=== PATIENT | male | born 1975 | race Caucasian/White ===

== ENCOUNTER 2018-11-18 15:28 | Emergency (ER) | payer MEDICARE, MEDICAID ==
--- NOTE | 2018-11-18 16:44 | EKG REPORT ---
SEVERITY:- ABNORMAL ECG - SINUS TACHYCARDIA RIGHT ATRIAL ABNORMALITY : Confirmed by: Faisal Brannon MD 18-Nov-2018 16:43:42
[2018-11-18 16:47] LABS: ABSOLUTE BASOPHILS # (AUTO) 0.1 10^3/uL (0.0-0.2); ABSOLUTE EOSINOPHILS # (AUTO) 0.2 10^3/uL (0.0-0.6); ABSOLUTE LYMPHOCYTES (AUTO) 1.4 10^3/uL (0.5-4.7); ABSOLUTE MONOCYTES (AUTO) 0.7 10^3/uL (0.1-1.4); ABSOLUTE NEUT (AUTO) 7.3 10^3/uL (1.7-8.2); BASOPHILS % (AUTO) 0.8 % (0-2); EOSINOPHILS % (AUTO) 1.6 % (0-6); HEMOGLOBIN 14.6 g/dL (13.5-17.0); LYMPHOCYTES % (AUTO) 14.7 % (13-45); MEAN CORPUSCULAR HEMOGLOBIN 29.2 pg (27.0-33.4); MEAN CORPUSCULAR HGB CONC 33.9 g/dL (32.0-36.0); MEAN CORPUSCULAR VOLUME 86 fl (80-97); MONOCYTES % (AUTO) 7.2 % (3-13); PLATELET COUNT 210 10^3/uL (150-450); RED BLOOD COUNT 4.99 10^6/uL (4.35-5.55); RED CELL DISTRIBUTION WIDTH 13.6 % (11.5-14.0); SEGMENTED NEUTROPHILS % (AUTO) 75.7 % (42-78); TOTAL CELLS COUNTED % (AUTO) 100 %; WHITE BLOOD COUNT 9.6 10^3/uL (4.0-10.5)
--- NOTE | 2018-11-18 16:48 | ER Document Report ---
Addendum entered and electronically signed by KEE GARCIA LCSWA 11/20/18 15:27: Discharge - Discharge Clinical Impression: Violent behavior, Schizoaffective disorder, bipolar type, Autism Condition: Good Disposition: HOME, SELF-CARE Additional Instructions: You have been evaluated both medical and behavioral health teams and deemed appropriate for discharge as you are clearly able to demonstrate you are in full control of your behaviors, deny thoughts of wanting to harm herself or others, and have no behaviors indicating psychosis. You are encouraged to take your medications as prescribed; follow-up with your outpatient mental health provider. AT ANY TIME, IF YOUR SYMPTOMS CHANGE SIGNIFICANTLY OR WORSEN OR YOU DEVELOP NEW SYMPTOMS, RETURN TO THE EMERGENCY DEPARTMENT IMMEDIATELY FOR RE-EVALUATION. Referrals: KAYLENE FOFANA FNP [Primary Care Provider] - Follow up as needed [facility] [Outside] - Follow up as needed Original Note: ED General - General Stated Complaint: PSYCH EVAL Time Seen by Provider: 11/18/18 16:32 Mode of Arrival: Ambulatory Information source: Law Enforcement, Outside Facility Records Cannot obtain history due to: Uncooperative Notes: 43-year-old male with unknown medical history [facility] with increasingly violent behavior, threatening staff and other patients. Patient repeatedly states that he is God and he will make everyone suffer once he becomes God. He is uncooperative with exam. Pacing around the room. Patient presented in police custody with IVC paperwork already in place. They d eem him mentally ill and danger to himself and others. Nursing Note: This expert medical writer received a call from Isabel at [facility] ([phone]), who reports the patient has been a resident for the past 10 years, his behaviors are increasingly getting worse, he is refusing to take any of his medications, threatening staff and other residents, told one resident "I will beat your fucking ass" which caused her to have a panic attack, everyone is scared of patient, last patient threw coffee on another residents computer, ruining it. Per Isabel the patient will run into the middle of the road near shelter, stopping traffic and laughing about it. Isabel reports the patients father is the Legal Guardian (Eliezer Anthony, ), he is refusing to take the patient back due to not being able to handle patient. Per Isabel the family has sabotaged getting the patient placement in other group homes and other will not accept the patient. Isabel reports the patient has a diagnosis of Autism, schizophrenia, paranoia, bi-polar. Isabel reports the shelter CAN NOT take the patient back as it is not appropriate placement. TRAVEL OUTSIDE OF THE [place] IN LAST 30 DAYS: No - HPI Onset: Other - Related Data Allergies/Adverse Reactions: No Known Allergies Allergy (Unverified 11/18/18 19:54) Past Medical History - General Information source: Law Enforcement, Outside Facility Records Cannot obtain history due to: Uncooperative - Social History Smoking Status: Unknown if Ever Smoked Lives with: [facility] Family History: Reviewed & Not Pertinent Patient has homicidal ideation: Yes - Medical History Medical History: Other - Unknown. No paperwork from nursing facility with patient information brought. Psychiatric Medical History: Reports: Hx Obsessive Compulsive Disorder, Hx Schizophrenia, Other - Autism Review of Systems - Review of Systems -: Yes ROS unobtainable due to patient's medical condition Physical Exam - Notes Notes: PHYSICAL EXAMINATION: GENERAL: Well-appearing, well-nourished and in no acute distress. HEAD: Atraumatic, normocephalic. EYES: Pupils equal round and reactive to light, extraocular movements intact, sclera anicteric, conjunctiva are normal. ENT: Nares patent, oropharynx clear without exudates. Moist mucous membranes. NECK: Normal range of motion, supple without lymphadenopathy LUNGS: Breath sounds clear to auscultation bilaterally and equal. No wheezes rales or rhonchi. HEART: Tachycardic, regular rhythm without murmurs ABDOMEN: Soft, nontender, nondistended abdomen. No guarding, no rebound. No masses appreciated. Musculoskeletal: Normal range of motion, no pitting or edema. No cyanosis. NEUROLOGICAL: Cranial nerves grossly intact. Normal speech, normal gait. Normal sensory, motor exams PSYCH: Pacing around the room, states he is god, uncooperative with exam. SKIN: Warm, Dry, normal turgor, no rashes or lesions noted. Course - Re-evaluation Re-evalutation: Laboratory 11/18/18 11/18/18 11/18/18 16:25 16:25 17:40 WBC 9.6 RBC 4.99 Hgb 14.6 Hct 43.0 MCV 86 MCH 29.2 MCHC 33.9 RDW 13.6 Plt Count 210 Seg Neutrophils % 75.7 Lymphocytes % 14.7 Monocytes % 7.2 Eosinophils % 1.6 Basophils % 0.8 Absolute Neutrophils 7.3 Absolute Lymphocytes 1.4 Absolute Monocytes 0.7 Absolute Eosinophils 0.2 Absolute Basophils 0.1 Sodium 139.4 Potassium 4.2 Chloride 102 Carbon Dioxide 28 Anion Gap 9 BUN 15 Creatinine 0.82 Est GFR ( Amer) > 60 Est GFR (Non-Af Amer) > 60 Glucose 107 Calcium 9.7 Total Bilirubin 0.9 Direct Bilirubin 0.1 Neonat Total Bilirubin Not Reportable Neonat Direct Bilirubin Not Reportable Neonat Indirect Bili Not Reportable AST 23 ALT 19 L Alkaline Phosphatase 72 Total Protein 7.1 Albumin 4.5 Urine Color YELLOW Urine Appearance CLEAR Urine pH 6.0 Ur Specific [place] 1.010 Urine Protein NEGATIVE Urine Glucose (UA) NEGATIVE Urine Ketones NEGATIVE Urine Blood NEGATIVE Urine Nitrite NEGATIVE Urine Bilirubin NEGATIVE Urine Urobilinogen NEGATIVE Ur Leukocyte Esterase NEGATIVE Urine WBC (Auto) 3 Urine RBC (Auto) 1 Squamous Epi Cells Auto <1 Urine Mucus (Auto) RARE Urine Ascorbic Acid 20 H Salicylates < 1.0 L Urine Opiates Screen Urine Methadone Screen Acetaminophen < 10 L Ur Barbiturates Screen Ur Phencyclidine Scrn Ur Amphetamines Screen U Benzodiazepines Scrn Urine Cocaine Screen U Marijuana (THC) Screen Serum Alcohol < 10 11/18/18 17:40 WBC RBC Hgb Hct MCV MCH MCHC RDW Plt Count Seg Neutrophils % Lymphocytes % Monocytes % Eosinophils % Basophils % Absolute Neutrophils Absolute Lymphocytes Absolute Monocytes Absolute Eosinophils Absolute Basophils Sodium Potassium Chloride Carbon Dioxide Anion Gap BUN Creatinine Est GFR ( Amer) Est GFR (Non-Af Amer) Glucose Calcium Total Bilirubin Direct Bilirubin Neonat Total Bilirubin Neonat Direct Bilirubin Neonat Indirect Bili AST ALT Alkaline Phosphatase Total Protein Albumin Urine Color Urine Appearance Urine pH Ur Specific [place] Urine Protein Urine Glucose (UA) Urine Ketones Urine Blood Urine Nitrite Urine Bilirubin Urine Urobilinogen Ur Leukocyte Esterase Urine WBC (Auto) Urine RBC (Auto) Squamous Epi Cells Auto Urine Mucus (Auto) Urine Ascorbic Acid Salicylates Urine Opiates Screen NEGATIVE Urine Methadone Screen NEGATIVE Acetaminophen Ur Barbiturates Screen NEGATIVE Ur Phencyclidine Scrn NEGATIVE Ur Amphetamines Screen NEGATIVE U Benzodiazepines Scrn NEGATIVE Urine Cocaine Screen NEGATIVE U Marijuana (THC) Screen NEGATIVE Serum Alcohol 11/18/18 16:53 43-year-old male presents via police custody with IVC paperwork from [facility] after patient has become increasingly violent, threatening. Upon arrival patient states that he is God. He is uncooperative with history. I did attempt to call [facility] and there was no answer. Patient has no previous medical records here. 11/18/18 23:12 11/18/18 23:14 We were able to receive medical records from [facility]. Patient does have a history of schizophrenia, OCD, autism, severe Asperger's, schizoaffective disorder. After reviewing the nursing notes from [facility] is does not appear that the patient actually physically attacked anyone that has been verbally threatening. Notes also indicate that the patient has been refusing to take his medications. Patient has been cooperative throughout his ED course. 11/18/18 23:17 Patient's medications were reviewed which include lamotrigine 200 mg daily, olanzapine 10 mg at noon and 20 mg at bedtime. Sertraline 25 mg daily and 50 mg at noon. No significant laboratory findings. Patient cleared for psychiatric evaluation in the morning. - Laboratory Result Diagrams: 11/18/18 16:25 11/18/18 16:25 Laboratory results interpreted by me: 11/18/18 11/18/18 16:25 17:40 ALT 19 L Urine Ascorbic Acid 20 H Salicylates < 1.0 L Acetaminophen < 10 L - EKG Interpretation by Or EKG shows normal: Sinus rhythm Rate: Tachycardia Rhythm: NSR When compared to previous EKG there are: Previous EKG unavailable Discharge - Discharge Clinical Impression: Violent behavior Condition: Good Referrals: KAYLENE FOFANA FNP [Primary Care Provider] - Follow up as needed
[2018-11-18 17:02] LABS: ALANINE AMINOTRANSFERASE 19 U/L (21-72); ALBUMIN 4.5 g/dL (3.5-5.0); ALKALINE PHOSPHATASE 72 U/L (38-126); ANION GAP 9 (5-19); ASPARTATE AMINO TRANSFERASE 23 U/L (17-59); BILIRUBIN,DIRECT 0.1 mg/dL (0.0-0.4); BILIRUBIN,TOTAL 0.9 mg/dL (0.2-1.3); BLOOD UREA NITROGEN 15 mg/dL (7-20); CALCIUM 9.7 mg/dL (8.4-10.2); CARBON DIOXIDE 28 mmol/L (22-30); CHLORIDE 102 mmol/L (98-107); GLUCOSE 107 mg/dL (75-110); POTASSIUM 4.2 mmol/L (3.6-5.0); SODIUM 139.4 mmol/L (137-145); TOTAL PROTEIN 7.1 g/dL (6.3-8.2)
[2018-11-18 17:04] LABS: ACETAMINOPHEN < 10 ug/mL (10-30); ALCOHOL < 10 mg/dL (NONE DETECTED); SALICYLATE < 1.0 mg/dL (2.0-20.0)
[2018-11-18 17:57] LABS: APPEARANCE,URINE CLEAR; BILIRUBIN,URINE NEGATIVE (NEGATIVE); COLOR,URINE YELLOW; GLUCOSE, URINE NEGATIVE (NEGATIVE); KETONES,URINE NEGATIVE (NEGATIVE); LEUKOCYTE ESTERASE,URINE NEGATIVE (NEGATIVE); NITRITE,URINE NEGATIVE (NEGATIVE); PROTEIN,URINE NEGATIVE (NEGATIVE); UROBILINOGEN,URINE NEGATIVE mg/dL (<2.0)
[2018-11-18 18:12] LABS: URINE AMPHETAMINES SCREEN NEGATIVE; URINE BARBITURATES SCREEN NEGATIVE; URINE BENZODIAZEPINES SCREEN NEGATIVE; URINE COCAINE SCREEN NEGATIVE; URINE MARIJUANA (THC) SCREEN NEGATIVE; URINE METHADONE SCREEN NEGATIVE; URINE PHENCYCLIDINE SCREEN NEGATIVE
[2018-11-18] MEDS ORDERED: OLANZAPINE 5 MG TABLET PO ONE (23:16)
--- NOTE | 2018-11-19 09:51 | ER Document Report ---
Doctor's Note Notes: 11/19/18 09:50 Patient has been seen and evaluated resting comfortably no acute distress. Laboratory values previous provider note and vital signs have been evaluated. Patient otherwise looks to be stable for disposition/transfer.
[2018-11-19] MEDS: LAMOTRIGINE 100 MG TABLET PO SCH (10:39)
[2018-11-19] MEDS: SERTRALINE HCL 50 MG TABLET PO SCH ×2 (10:39→12:08)
--- NOTE | 2018-11-19 12:56 | PSYCHOLOGICAL NOTE ---
Psych Note - Psych Note Date seen by psych provider: 11/19/18 Time seen by psych provider: 08:45 Psych Note: Reason for consult: Contact Permissions: Patient is a 43 yo male presenting to the ED under IVC with LE from [facility] where he resides, due to escalation of behaviors with patient verbally threatening other patient's, stating he is God, running out into the road, and refusing to take his medication. Check in with patient who perseverates on his name for some time. Redirected to address his medication non-compliance, patient admits he notified the psychiatrist that he didn't need them/wasn't taking them and from that point forward jsut put them in the trash or spit them out. Per patient who has been shaving half of his eyebrows off "for many years", his psychiatrist is incompetent and he was "put in here wrongfully, by a bunch of sinnerswho have wronged" him. He asserts that what he really needs is an apartment and a job at [employer] - that he can take care of himself. He states he will refuse to take any medication in the ED other than Zyprexa because "it's bad for me it makes me feel discomfort in my head and body" Zyprexa is agreeable to him because it helps him sleep which patient admits he hasn't done for days. He attributes his difficulty sleeping to the narrowness of the bed. Patient is in fact, in a star fish position during the evaluation. He denies SI, HI, and AV/H Patient is alert and oriented x 4. Mood is manic with congruent affect aeb pressured speech, perseveration, irritability, psychomotor agitation, and patient reports no sleep. Patient denies SI, HI, and AV/H, does not appear to be responding to internal stimuli, and paranoid/grandiose delusions were noted aeb "medications are bad for me/cause discomfort/I've been wronged by sinners/I don't need medication/can live and work on my own".. Conversational speech was pressured and increased. Eye contact was well maintained. Thought processes were linear/perseveration . Intellectual abilities were estimated within the average range. Attention/concentration was impaired while, insight, judgment, and impulse control were poor. Behavioral health spoke with Gonzalez Garcia (Case Management) who provided information obtained from [facility] stating they had an order to D/C the patient from their care in 30 days due to not being able to meet his needs. [facility] reported that the patient would be D/C'd to [facility]. Diagnosis: 299.00 (F84.00) Autism Spectrum Disorder, per hx 295.70 (F25.0) Schizoaffective Disorder, Bipolar Type Medication recommendations as per psychiatric provider, Dr. Sheridan are as follows: restart home medications Lamictal 200mg daily Zyprexa 10mg at noon and bedtime Zoloft 25mg daily and 50mg at noon Patient is recommended to maintain IVC due to risk of harm to self or others aeb Patient is diagnosed with ASD and Schizoaffective disorder, is medication non- compliant for at least one week, and demonstrating manic behavior (shaved eyebrows, psychomotor agitation/irritability, disorganized thought processes impairing his insight, judgment, and impulse control. Plan is to stabilize on medication, hold for further observation, and re-evaluate. Consulted Dr. Jackson in the care and treatment of this patient and ED physician who is in agreement with disposition and recommendation.
[2018-11-19] MEDS: OLANZAPINE 5 MG TAB.RAPDIS PO SCH (17:10)
[2018-11-20] MEDS: OLANZAPINE 5 MG TAB.RAPDIS PO SCH (09:36)
[2018-11-20] MEDS: LAMOTRIGINE 100 MG TABLET PO SCH (09:37)
[2018-11-20] MEDS: SERTRALINE HCL 50 MG TABLET PO SCH ×2 (09:37→12:11)
--- NOTE | 2018-11-20 09:51 | ER Document Report ---
Doctor's Note Notes: 11/20/18 09:53 Rounds: Chart reviewed and patient interviewed. Patient with a diagnosis of autism and schizoaffective disorder, bipolar type with violent behavior. He is a resident at [facility], but there is now controversy as to whether they will accept him back. My initial contact with the patient he is arguing with the nurse about taking his medications. He is refusing to take his Lamictal, Zoloft, and Zyprexa. When I threatened to order it as an injection in his butt, he agreed to take the medications and did so, swallowing all 3 medications. He is very hyper and agitated. Vital signs are all normal. Lab studies are all normal. Patient appears to be medically stable for transfer or discharge. Sherman Arreola MD
[2018-11-20 16:50] VITALS: BP 115/42
--- NOTE | 2018-11-21 08:45 | PSYCHOLOGICAL NOTE ---
Psych Note - Psych Note Date seen by psych provider: 11/20/18 Time seen by psych provider: 09:10 Psych Note: Reason for consult: IVC Contact Permissions: none provided Patient is a 43 yo male presenting to the ED under IVC with LE from [facility] where he resides, due to escalation of behaviors with patient verbally threatening other patient's, stating he is God, running out into the road, and refusing to take his medication. Check-in conducted with patient Patient engages appropriate with clinician and discusses his believes on current events which resulted in him being put under involuntary commitment. He denies any physical acts of aggression and reports that the verbal aggression came from defending himself because other residents started being verbally aggressive with him first. He denies any thoughts of wanting to harm others and reports that he understands that hitting somebody would take "it too far... But I can talk back." Clinician notes some minor psychomotor agitation however it appears more repetitive in nature i.e. compulsive movements or tics. Conversational speech was within normal rate, tone and prosody however very focused on the patient's want of taking only Zyprexa. Patient reports that he wants to take 20 mg of Zy prexa at midnight which he identifies as the best results to assist in sleep. Clinician explained to the patient that when living in assisted living situations scheduled medications are provided during certain time frames and that medications need to be taken as directed from another physician. Clinician notes patient has a very difficult time understanding and demonstrates very concrete thought processes i.e. "but there is a medication person there all the time they can just give it to me at midnight easily." Clinician notes patient's presentation directly correlates with symptoms of his diagnosis of autism. He is not demonstrating any behaviors or responding to internal stimuli. Patient was noted to be calm and appropriate during entire reevaluation. Chart review conducted. Patient has had no behavioral disturbances and has been appropriate with staff. Medication recommendations as per psychiatric provider, Dr. Sheridan are as follows: continue home medications Lamictal 200mg daily Zyprexa 10mg at noon and bedtime Zoloft 25mg daily and 50mg at noon well Diagnosis: 299.00 (F84.00) Autism Spectrum Disorder, per hx 295.70 (F25.0) Schizoaffective Disorder, Bipolar Type Impression/plan: Patient is recommended for rescind of IVC and is cleared from acute psychiatric services. Patient no longer meets IVC criteria per [place] GS 122C. Patient was restarted on medications. Current presentation directly correlates with symptoms of his diagnosis of autism is not demonstrating any behaviors of responding to internal stimuli. Patient clearly communicates his understanding of defending himself and states that he understands hitting somebody would take things too far; he believes it is his right to say what he wants to say. Patient has demonstrated clearly he is in control of his behaviors and has very concrete thought processes. Clinician attempted psychoeducation with the patient however patient was unable to fully grasp concepts. Patient does have a higher level care in assisted living. Patient is recommended to follow-up with his outpatient mental health provider about discussing possible monthly decanoate shots to assist with medication noncompliance. Dr. Jackson was consulted on the the care and mangement of this patient; attending physician is in agreement with recommendation and disposition.
== END 2018-11-20 16:30 | disposition home or self-care (01) ==
LOC: ER 15:28
DX: R45.6 Violent behavior (principal); F25.0 Schizoaffective disorder, bipolar type; F84.0 Autistic disorder
CPT/HCPCS: 93005; 99285; 36415; 80307 ×4; 85025; 80053; 81001; 93010; A9270 ×4; J3490

== ENCOUNTER 2018-11-28 19:29 | Emergency (ER) | payer MEDICARE, MEDICAID ==
--- NOTE | 2018-11-28 20:01 | ER Document Report ---
ED General - General Stated Complaint: IVC Time Seen by Provider: 11/28/18 19:55 Mode of Arrival: Ambulatory Information source: Patient, Law Enforcement, [facility] Records, Outside Facility Records Notes: Patient is a 43 yo male with schizoaffective disorder, autism, OCD presents in police custody from [facility] where he resides with IVC paperwork., due to escalation of behaviors with patient verbally threatening other patient's, stating he is God, and refusing to take his medication. Upon my exam patient is cooperative but consistently states that "I am perfect I should be God when I becomes God I will punish everyone who has offended me". Patient states that he will be in torture people with Haldol. Patient states that it makes as much sense for him to be in here as it would be to teach "Jimbo Monroe how to count to 10". Patient did reveal that he would kill his dad if he could. Patient was brought in for similar symptoms approximately 10 days ago and seen by myself and our psychiatric team. TRAVEL OUTSIDE OF THE [place] IN LAST 30 DAYS: No - HPI Onset: Just prior to arrival Onset/Duration: Sudden Quality of pain: No pain Severity: None Associated symptoms: None Exacerbated by: Denies Relieved by: Denies Similar symptoms previously: Yes Recently seen / treated by doctor: Yes - November 21, 2018 - Related Data Allergies/Adverse Reactions: No Known Allergies Allergy (Unverified 11/18/18 19:54) Past Medical History - General Information source: Patient, [facility] Records - Social History Smoking Status: Never Smoker Frequency of alcohol use: None Drug Abuse: None Lives with: [facility] Family History: Reviewed & Not Pertinent Patient has suicidal ideation: No Patient has homicidal ideation: No Renal/ Medical History: Denies: Hx Peritoneal Dialysis Psychiatric Medical History: Reports: Hx Bipolar Disorder, Hx Obsessive Compulsive Disorder, Hx Schizophrenia Review of Systems - Review of Systems Notes: REVIEW OF SYSTEMS: CONSTITUTIONAL : Denies fever, chills, or sweats. Denies recent illness. Den ies weight loss, recent hospitalizations. EENT: Denies visual changes, eye pain. Denies sore throat, oral lesions, difficulty swallowing. CARDIOVASCULAR: Denies chest pain. Denies palpitations. Denies lower extremity edema. RESPIRATORY: Denies cough. Denies shortness of breath, wheezing. GASTROINTESTINAL: Denies abdominal pain or distention. Denies nausea, vomiting, or diarrhea. Denies blood in vomitus, stools, or per rectum. Denies black, tarry stools. Denies constipation. GENITOURINARY: Denies difficulty urinating, painful urination, frequency, blood in urine, testicular pain or penile discharge. MUSCULOSKELETAL: Denies back or neck pain or stiffness. Denies joint pain or s welling. SKIN: Denies rash, lesions or sores. HEMATOLOGIC : Denies easy bruising or bleeding. LYMPHATIC: Denies swollen glands. NEUROLOGICAL: Denies confusion or altered mental status. Denies loss of consciousness. Denies dizziness or lightheadedness. Denies headache. Denies weakness or paralysis. Denies problems difficulty with ambulation, slurred speech. Denies sensory loss, numbness, or tingling. Denies seizures. PSYCHIATRIC: Denies anxiety or stress. Denies depression, suicidal ideation, Physical Exam - Vital signs Vitals: Temp Pulse Resp BP Pulse Ox 99.1 F 130 H 16 116/82 100 11/28/18 19:56 11/28/18 19:56 11/28/18 19:56 11/28/18 19:56 11/28/18 19:56 - Notes Notes: PHYSICAL EXAMINATION: GENERAL: Well-appearing, well-nourished and in no acute distress. HEAD: Atraumatic, normocephalic. EYES: Pupils equal round and reactive to light, extraocular movements intact, sclera anicteric, conjunctiva are normal. ENT: Tonsillar swelling with erythema, exudates moist mucous membranes. NECK: Normal range of motion, + anterior cervical lymphadenopathy lymphadenopathy LUNGS: Breath sounds clear to auscultation bilaterally and equal. No wheezes rales or rhonchi. HEART: Regular rate and rhythm without murmurs ABDOMEN: Soft, nontender, nondistended abdomen. No guarding, no rebound. No masses appreciated. Musculoskeletal: Normal range of motion, no pitting or edema. No cyanosis. NEUROLOGICAL: Cranial nerves grossly intact. Normal speech, normal gait. Normal sensory, motor exams PSYCH: Normal mood, normal affect. SKIN: Warm, Dry, normal turgor, no rashes or lesions noted. Course - Re-evaluation Re-evalutation: 11/28/18 22:17 Laboratory 11/28/18 11/28/18 11/28/18 20:05 20:05 20:55 WBC 14.1 H RBC 4.77 Hgb 14.0 Hct 41.5 MCV 87 MCH 29.4 MCHC 33.8 RDW 13.2 Plt Count 298 Seg Neutrophils % 63.0 Lymphocytes % 21.8 Monocytes % 10.3 Eosinophils % 3.9 Basophils % 1.0 Absolute Neutrophils 8.9 H Absolute Lymphocytes 3.1 Absolute Monocytes 1.4 Absolute Eosinophils 0.5 Absolute Basophils 0.1 Sodium 139.3 Potassium 4.5 Chloride 97 L Carbon Dioxide 33 H Anion Gap 9 BUN 15 Creatinine 0.64 Est GFR ( Amer) > 60 Est GFR (Non-Af Amer) > 60 Glucose 112 H Calcium 9.9 Total Bilirubin 0.4 Direct Bilirubin 0.1 Neonat Total Bilirubin Not Reportable Neonat Direct Bilirubin Not Reportable Neonat Indirect Bili Not Reportable AST 21 ALT 21 Alkaline Phosphatase 82 Total Protein 7.5 Albumin 4.5 Urine Color STRAW Urine Appearance CLEAR Urine pH 8.0 Ur Specific Dexter 1.011 Urine Protein NEGATIVE Urine Glucose (UA) NEGATIVE Urine Ketones NEGATIVE Urine Blood NEGATIVE Urine Nitrite NEGATIVE Urine Bilirubin NEGATIVE Urine Urobilinogen NEGATIVE Ur Leukocyte Esterase NEGATIVE Urine WBC (Auto) 0 Urine RBC (Auto) 0 Squamous Epi Cells Auto <1 Urine Mucus (Auto) RARE Urine Ascorbic Acid 40 H Salicylates < 1.0 L Urine Opiates Screen Urine Methadone Screen Acetaminophen < 10 L Ur Barbiturates Screen Ur Phencyclidine Scrn Ur Amphetamines Screen U Benzodiazepines Scrn Urine Cocaine Screen U Marijuana (THC) Screen Serum Alcohol < 10 11/28/18 20:55 WBC RBC Hgb Hct MCV MCH MCHC RDW Plt Count Seg Neutrophils % Lymphocytes % Monocytes % Eosinophils % Basophils % Absolute Neutrophils Absolute Lymphocytes Absolute Monocytes Absolute Eosinophils Absolute Basophils Sodium Potassium Chloride Carbon Dioxide Anion Gap BUN Creatinine Est GFR ( Amer) Est GFR (Non-Af Amer) Glucose Calcium Total Bilirubin Direct Bilirubin Neonat Total Bilirubin Neonat Direct Bilirubin Neonat Indirect Bili AST ALT Alkaline Phosphatase Total Protein Albumin Urine Color Urine Appearance Urine pH Ur Specific Dexter Urine Protein Urine Glucose (UA) Urine Ketones Urine Blood Urine Nitrite Urine Bilirubin Urine Urobilinogen Ur Leukocyte Esterase Urine WBC (Auto) Urine RBC (Auto) Squamous Epi Cells Auto Urine Mucus (Auto) Urine Ascorbic Acid Salicylates Urine Opiates Screen NEGATIVE Urine Methadone Screen NEGATIVE Acetaminophen Ur Barbiturates Screen NEGATIVE Ur Phencyclidine Scrn NEGATIVE Ur Amphetamines Screen NEGATIVE U Benzodiazepines Scrn NEGATIVE Urine Cocaine Screen NEGATIVE U Marijuana (THC) Screen NEGATIVE Serum Alcohol Temp Pulse Resp BP Pulse Ox 99.1 F 130 H 16 116/82 100 11/28/18 19:56 11/28/18 19:56 11/28/18 19:56 11/28/18 19:56 11/28/18 19:56 11/28/18 22:18 Patient is a 43 yo male with schizoaffective disorder, autism, OCD presents in police custody from [facility] where he resides with IVC paperwork., due to escalation of behaviors with patient verbally threatening other patient's, stating he is God, and refusing to take his medication. Upon my exam patient is cooperative but consistently states that "I am perfect I should be God when I becomes God I will punish everyone who has offended me". Patient states that he will be in torture people with Haldol. Patient states that it makes as much sense for him to be in here as it would be to teach "Jimbo Lambertnathan how to count to 10". Patient did reveal that he would kill his dad if he could. Patient was brought in for similar symptoms approximately 10 days ago and seen by myself and our psychiatric team. Vital signs stable upon arrival except for tachycardia likely due to agitation and pacing around the room. Patient did state that he was supposed to start amoxicillin for strep throats tomorrow. He states he has had a sore throat for several days with a dry cough. Significant laboratory findings include a CBC with a leukocytosis of 14. CMP, urinalysis, urine drug screen Tylenol and salicylate levels are within normal limits. Patient cleared for psychiatric evaluation in the morning. - Vital Signs Vital signs: Temp Pulse Resp BP Pulse Ox 99.1 F 130 H 16 116/82 100 11/28/18 19:56 11/28/18 19:56 11/28/18 19:56 11/28/18 19:56 11/28/18 19:56 - Laboratory Result Diagrams: 11/28/18 20:05 11/28/18 20:05 Laboratory results interpreted by me: 11/28/18 11/28/18 11/28/18 20:05 20:05 20:55 WBC 14.1 H Absolute Neutrophils 8.9 H Chloride 97 L Carbon Dioxide 33 H Glucose 112 H Urine Ascorbic Acid 40 H Salicylates < 1.0 L Acetaminophen < 10 L Discharge - Discharge Clinical Impression: Homicidal ideation, Schizoaffective disorder, bipolar type, Autism Pharyngitis Qualifiers: Pharyngitis/tonsillitis etiology: unspecified etiology Qualified Code(s): J02.9 - Acute pharyngitis, unspecified Condition: Good Instructions: Sore Throat ([facility]) Referrals: KAYLENE FOFANA FNP [Primary Care Provider] - Follow up as needed
[2018-11-28 20:13] LABS: ABSOLUTE BASOPHILS # (AUTO) 0.1 10^3/uL (0.0-0.2); ABSOLUTE EOSINOPHILS # (AUTO) 0.5 10^3/uL (0.0-0.6); ABSOLUTE LYMPHOCYTES (AUTO) 3.1 10^3/uL (0.5-4.7); ABSOLUTE MONOCYTES (AUTO) 1.4 10^3/uL (0.1-1.4); ABSOLUTE NEUT (AUTO) 8.9 10^3/uL (1.7-8.2); EOSINOPHILS % (AUTO) 3.9 % (0-6); HEMATOCRIT 41.5 % (37.9-51.0); LYMPHOCYTES % (AUTO) 21.8 % (13-45); MEAN CORPUSCULAR HEMOGLOBIN 29.4 pg (27.0-33.4); MEAN CORPUSCULAR HGB CONC 33.8 g/dL (32.0-36.0); MEAN CORPUSCULAR VOLUME 87 fl (80-97); MONOCYTES % (AUTO) 10.3 % (3-13); PLATELET COUNT 298 10^3/uL (150-450); RED BLOOD COUNT 4.77 10^6/uL (4.35-5.55); RED CELL DISTRIBUTION WIDTH 13.2 % (11.5-14.0); TOTAL CELLS COUNTED % (AUTO) 100 %; WHITE BLOOD COUNT 14.1 10^3/uL (4.0-10.5)
[2018-11-28 20:39] LABS: ALANINE AMINOTRANSFERASE 21 U/L (21-72); ALBUMIN 4.5 g/dL (3.5-5.0); ALKALINE PHOSPHATASE 82 U/L (38-126); ANION GAP 9 (5-19); ASPARTATE AMINO TRANSFERASE 21 U/L (17-59); BILIRUBIN,DIRECT 0.1 mg/dL (0.0-0.4); BILIRUBIN,TOTAL 0.4 mg/dL (0.2-1.3); BLOOD UREA NITROGEN 15 mg/dL (7-20); CALCIUM 9.9 mg/dL (8.4-10.2); CARBON DIOXIDE 33 mmol/L (22-30); CHLORIDE 97 mmol/L (98-107); GLUCOSE 112 mg/dL (75-110); POTASSIUM 4.5 mmol/L (3.6-5.0); SODIUM 139.3 mmol/L (137-145); TOTAL PROTEIN 7.5 g/dL (6.3-8.2)
[2018-11-28 20:41] LABS: ACETAMINOPHEN < 10 ug/mL (10-30); ALCOHOL < 10 mg/dL (NONE DETECTED); SALICYLATE < 1.0 mg/dL (2.0-20.0)
[2018-11-28 21:36] LABS: APPEARANCE,URINE CLEAR; BILIRUBIN,URINE NEGATIVE (NEGATIVE); COLOR,URINE STRAW; GLUCOSE, URINE NEGATIVE (NEGATIVE); KETONES,URINE NEGATIVE (NEGATIVE); LEUKOCYTE ESTERASE,URINE NEGATIVE (NEGATIVE); NITRITE,URINE NEGATIVE (NEGATIVE); PROTEIN,URINE NEGATIVE (NEGATIVE); URINE SPECIFIC GRAVITY 1.011; UROBILINOGEN,URINE NEGATIVE mg/dL (<2.0)
[2018-11-28 21:57] LABS: URINE AMPHETAMINES SCREEN NEGATIVE; URINE BARBITURATES SCREEN NEGATIVE; URINE BENZODIAZEPINES SCREEN NEGATIVE; URINE COCAINE SCREEN NEGATIVE; URINE MARIJUANA (THC) SCREEN NEGATIVE; URINE METHADONE SCREEN NEGATIVE; URINE PHENCYCLIDINE SCREEN NEGATIVE
[2018-11-28] MEDS: AMOXICILLIN TRIHYDRATE 500 MG CAPSULE PO SCH (22:38)
--- NOTE | 2018-11-28 23:06 | EKG REPORT ---
SEVERITY:- NORMAL ECG - SINUS RHYTHM ST ELEV, PROBABLE NORMAL EARLY REPOL PATTERN : Confirmed by: Ella Rojo 28-Nov-2018 23:05:19
--- NOTE | 2018-11-29 09:35 | ER Document Report ---
Doctor's Note Notes: 11/29/18 09:29 Rounds: Chart reviewed. Patient being interviewed by Dr. Jackson at this time. Patient being evaluated for history of schizoaffective disorder, autism, and OCD currently agitated and aggressive and threatening with references to God. Labs have a white count of 14,100 and otherwise are no. No evidence of any infection anywhere. Vital signs had a heart rate of 130 early in the stay, but now it is 87. Other vital signs are all normal. Patient is a resident of [facility]. Patient was here about 10 days ago. Administration at [facility] has informed staff here that patient cannot return to [facility]. This is happened previously with this patient, as well. Patient appears to be medically stable for transfer or discharge. Sherman Arreola MD
[2018-11-29] MEDS: AMOXICILLIN TRIHYDRATE 500 MG CAPSULE PO SCH ×2 (10:14→17:32)
[2018-11-29] MEDS ORDERED: FLUPHENAZINE DECANOATE INJ 125 MG/5 ML VIAL IM ONE (17:02)
[2018-11-29] MEDS ORDERED: OLANZAPINE 5 MG TAB.RAPDIS PO ONE (17:04)
[2018-11-29] MEDS ORDERED: BENZTROPINE MESYLATE 1 MG TABLET PO ONE (17:05)
[2018-11-29 17:21] VITALS: BP 128/79
== END 2018-11-29 18:05 | disposition home or self-care (01) ==
LOC: ER 19:29
DX: R45.850 Homicidal ideations (principal); J02.9 Acute pharyngitis, unspecified; F25.0 Schizoaffective disorder, bipolar type; F84.0 Autistic disorder
CPT/HCPCS: 93005; 99284; 96372; 36415; 80307 ×4; 85025; 80053; 81001; 93010; A9270 ×4; J2680; J3490

== ENCOUNTER 2018-12-30 15:38 | Emergency (ER) | payer MEDICARE, MEDICAID ==
[2018-12-30 15:51] VITALS: BP 132/81
--- NOTE | 2018-12-30 16:55 | ER Document Report ---
HPI - HPI Patient complains to provider of: Need IM injection Time Seen by Provider: 12/30/18 16:42 Onset: Other - Occasion ordered last month Onset/Duration: Persistent Quality of pain: No pain Severity: None Pain Level: Denies Context: 43-year-old male presented to ED today because he refused to get his injection of Fluphenazine from the staff at [facility] where he now resides. This is an antipsychotic medication that he needs for his schizophrenia and multiple other psychiatric and psychotic illnesses. Patient had first stated that he did not want the injection but then he did agree that he needed it so he did not have any bad effects and agreed to take the medication. Family was present in the room when he got his medication. Associated Symptoms: Other Exacerbated by: Denies Relieved by: Denies Similar symptoms previously: Yes Recently seen / treated by doctor: No - ROS ROS below otherwise negative: Yes - CONSTITUTIONAL Constitutional: DENIES: Fever, Chills - EENT EENT: DENIES: Sore Throat, Ear Pain, Nasal Drainage-Clear, Nasal Drainage- Purulent, Congestion, Eye problems - NEURO Neurology: DENIES: Headache, Weakness, Vision blurred, Dizzinesss / Vertigo - CARDIOVASCULAR Cardiovascular: DENIES: Chest pain - RESPIRATORY Respiratory: DENIES: Trouble Breathing, Coughing - GASTROINTESTINAL Gastrointestinal: DENIES: Abdominal Pain, Nausea, Patient vomiting, Diarrhea, Constipation, Black / Bloody Stools - URINARY Urinary: DENIES: Dysuria, Urgency, Frequency - REPRODUCTIVE Reproductive: DENIES: :, Postmenopausal, Abnormal bleeding / discharge - MUSCULOSKELETAL Musculoskeletal: DENIES: Extremity pain, Back Pain, Neck Pain, Swelling - DERM Skin Color: Normal Skin Problems: None Past Medical History - General Information source: Patient - Social History Smoking Status: Never Smoker Frequency of alcohol use: None Drug Abuse: None Lives with: Other - [facility] Family History: Reviewed & Not Pertinent - Past Medical History Cardiac Medical History: Reports: None Pulmonary Medical History: Reports: None EENT Medical History: Reports: None Neurological Medical History: Reports: None Endocrine Medical History: Reports: None Renal/ Medical History: Reports: None Malignancy Medical History: Reports None GI Medical History: Reports: None Musculoskeletal Medical History: Reports None Psychiatric Medical History: Reports: Hx Bipolar Disorder, Hx Obsessive Compulsive Disorder, Hx Schizophrenia Traumatic Medical History: Reports: None Infectious Medical History: Reports: None Surgical Hx: Negative Past Surgical History: Reports: None - Immunizations Immunizations up to date: Yes Hx Diphtheria, Pertussis, Tetanus Vaccination: Yes Vertical Provider Document - CONSTITUTIONAL Agree With Documented VS: Yes General Appearance: WD/WN, No Apparent Distress - INFECTION CONTROL TRAVEL OUTSIDE OF THE [place] IN LAST 30 DAYS: No - HEENT HEENT: Atraumatic, Normal ENT Exam, PERRLA - NECK Neck: Normal Inspection - RESPIRATORY Respiratory: Breath Sounds Normal, No Respiratory Distress - CARDIOVASCULAR Cardiovascular: Regular Rate, Regular Rhythm - BACK Back: Normal Inspection, Abnormal Inspection - MUSCULOSKELETAL/EXTREMETIES Musculoskeletal/Extremeties: MAEW, FROM - NEURO Level of Consciousness: Confused - with family present to get IM injection Course - Vital Signs Vital signs: Temp Pulse Resp BP Pulse Ox 98.2 F 79 16 132/81 H 96 12/30/18 15:49 12/30/18 15:49 12/30/18 15:49 12/30/18 15:49 12/30/18 15:49 Discharge - Discharge Clinical Impression: injection of home medications Condition: Stable Disposition: HOME, SELF-CARE Additional Instructions: This patient was seen today to get an injection of his home medication Fluphenazine. Patient did receive his antipsychotic medication as ordered. Family was present when patient agreed to take the medication. Patient agreed to his assessment. Patient was discharged home to [facility] where he now resides. FOLLOW-UP CARE: If you have been referred to a physician for follow-up care, call the physicians office for an appointment as you were instructed or within the next two days. If you experience worsening or a significant change in your symptoms, notify the physician immediately or return to the Emergency Department at any time for re-evaluation. Forms: Elevated Blood Pressure Referrals: KAYLENE FOFANA FNP [Primary Care Provider] - Follow up as needed
== END 2018-12-30 17:01 | disposition home or self-care (01) ==
LOC: ER 15:38
DX: F20.9 Schizophrenia, unspecified (principal); R41.0 Disorientation, unspecified; Z91.14 Patient's other noncompliance with medication regimen
CPT/HCPCS: 99281

== ENCOUNTER 2019-02-01 21:50 | Emergency (ER) | payer MEDICARE, MEDICAID ==
[2019-02-01 22:24] VITALS: BP 152/100
[2019-02-02] MEDS ORDERED: KETOROLAC TROMETHAMINE 60 MG/2 ML SDV IM ONE (00:46)
[2019-02-02] MEDS ORDERED: CYCLOBENZAPRINE HCL 10 MG TABLET PO ONE (00:47)
[2019-02-02] MEDS ORDERED: LIDOCAINE 5% (700 MG) TRANSDERMAL ADH..PATCH TP ONE (00:47)
--- NOTE | 2019-02-02 00:58 | ER Document Report ---
HPI - HPI Patient complains to provider of: back pain Time Seen by Provider: 02/02/19 00:02 Pain Level: 5 Context: Patient is a 43-year-old male presents to the emergency department for generalized lower back pain. 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 States for the last week he has been opening a heavy window in his room in order to air it out. Patient states he feels as though he may have "strained" his lower back from lifting that heavy window. Patient is denying any trauma or injury. Patient denies any numbness or tingling in any extremity, urinary retention, loss Of bowel or bladder. Past medical history: Schizophrenia, OCD, Asperger's, bipolar Medications: Multiple unknown to the patient Allergies: None - REPRODUCTIVE Reproductive: DENIES: : Past Medical History - General Information source: Patient, Transfer Record - Social History Smoking Status: Unknown if Ever Smoked Family History: Reviewed & Not Pertinent Renal/ Medical History: Denies: Hx Peritoneal Dialysis Psychiatric Medical History: Reports: Hx Bipolar Disorder, Hx Obsessive Compulsive Disorder, Hx Schizophrenia - Immunizations Immunizations up to date: Yes Hx Diphtheria, Pertussis, Tetanus Vaccination: Yes Vertical Provider Document - CONSTITUTIONAL Agree With Documented VS: Yes Notes: GENERAL: Alert, interacts well. No acute distress. HEAD: Normocephalic, atraumatic. EYES: Pupils equal, round, and reactive to light. Extraocular movements intact. ENT: Oral mucosa moist, tongue midline. NECK: Full range of motion. Supple. Trachea midline. LUNGS: Clear to auscultation bilaterally, no wheezes, rales, or rhonchi. No r espiratory distress. HEART: Regular rate and rhythm. No murmur ABDOMEN: Soft, non-tender. Non-distended. Bowel sounds present in all 4 quadrants. EXTREMITIES: Moves all 4 extremities spontaneously. No edema, normal radial and dorsalis pedis pulses bilaterally. No cyanosis. 5 out of 5 strength noted all 4 extremities. BACK: no cervical, thoracic, lumbar midline tenderness. No saddle anesthesia, no rmal distal neurovascular exam. Paraspinal lumbar pain noted bilaterally. Pain does not radiate to either buttocks. NEUROLOGICAL: Alert and oriented x3. Normal speech. cranial nerves II through XII grossly intact PSYCH: Normal affect, normal mood. SKIN: Warm, dry, normal turgor. No rashes or lesions noted. - INFECTION CONTROL TRAVEL OUTSIDE OF THE [place] IN LAST 30 DAYS: No Course - Re-evaluation Re-evalutation: 02/02/19 00:59 Patient was treated with Toradol, Flexeril, Lidoderm patch in the emergency department. Discussed close follow-up with primary care provider and stretches. Patient stable for discharge. Presentation of a well appearing patient complaining of acute back pain. No rapid progression of symptoms, systemic symptoms including fevers, chills, weight loss, history of recent bacterial infection, bilateral symptoms, numbness, weakness, difficulty walking, urinary retention or bowel incontinence, personal history of cancer, immunosuppression, diabetes, known AAA, or history of IV drug use. Exam is without point tenderness over vertebral bodies, pulsatile abdominal mass, and patient has symmetric and intact lower extremity strength, sensation, and reflexes without clonus. 2+ symmetric medial malleolar and dorsalis pedis pulses Based on history and physical, I have a very low suspicion of a concerning etiology of pain including epidural compression syndrome, spinal infection, transverse myelitis, malignancy, abdominal aortic aneurysm, renal colic, acute lower extremity claudication, neurogenic claudication, ankylosing spondylitis, or other intra-abdominal process. Due to absence of concerning risk factors in history and physical as well as absence of rapidly progressive, severe, or bilateral symptoms, will defer imaging at this point. - Vital Signs Vital signs: Temp Pulse Resp BP Pulse Ox 98.4 F 100 17 152/100 H 100 02/01/19 22:20 02/01/19 22:20 02/01/19 22:20 02/01/19 22:20 02/01/19 22:20 Discharge - Discharge Clinical Impression: Lumbar back pain Condition: Stable Disposition: HOME, SELF-CARE Instructions: Low Back Pain ([facility]), Muscle Strain ([facility]), Warm Packs ([facility]) Additional Instructions: You have been seen in the Emergency Department (ED) today for back pain. Your workup and exam have not shown any acute abnormalities and you are likely suffering from muscle strain or possible problems with your discs, but there is no treatment that will fix your symptoms at this time. Please take the naproxen that has been prescribed as directed. You should also purchase a local lidocaine cream such as "aspercreme with lidocaine" and use per bottle instructions to the affected area. Apply heat to the area as often as you are able. Continue to keep active and avoid prolonged periods of bed rest. Please follow up with your doctor as soon as possible regarding today's ED visit and your back pain. Return to the ED for worsening back pain, fever, weakness or numbness of either leg, or if you develop either (1) an inability to urinate or have bowel movements, or (2) loss of your ability to control your bathroom functions (if you start having "accidents"), or if you develop other new symptoms that concern you.concern you. Stretching Exercises for the Back The physician has recommended that you begin stretching exercises for your back. These are often used even while the back is painful. However, you should notify the physician if the activities seem to increase your pain. PELVIC TILT: Lie flat on your back with knees bent. Tighten your stomach and buttock muscles so it flattens your lower back against the floor. Hold 10 seconds. Repeat 10 times, twice daily. KNEE RAISE: Lying on the back with knees bent, raise one knee to your chest, then the other. Hold both knees against the chest 10 seconds, then lower one knee at a time. Repeat 10 times, twice daily. PARTIAL TRUNK RAISE: Lie face down, arms at your sides. Keeping your waist on the floor, use your arms raise your chest up. Support yourself on your elbows for 30 seconds. Repeat twice daily, increasing the time to two minutes as you recover. Prescriptions: Naproxen 500 mg PO BID #20 tablet Referrals: KAYLENE FOFANA FNP [Primary Care Provider] - Follow up as needed
== END 2019-02-02 01:40 | disposition home or self-care (01) ==
LOC: ER 21:50
DX: M54.5 Low back pain (principal)
CPT/HCPCS: 99283; 96372; A9270; J1885

== ENCOUNTER 2019-04-08 16:06 | Emergency (ER) | payer MEDICARE, MEDICAID ==
--- NOTE | 2019-04-08 16:40 | ER Document Report ---
ED General - General Chief Complaint: Mouth Problem Stated Complaint: LOCKED JAW Time Seen by Provider: 04/08/19 16:23 Primary Care Provider: KAYLENE FOFANA FNP [Primary Care Provider] - Follow up as needed NOLVIA PATRICIA DO [ASSOCIATE] - Follow up in 3-5 days Notes: Patient is a 44-year-old male with history of bipolar disorder that presents to the emergency department for chief complaint of jaw pain and unable to close jaw. Patient states that he felt his jaw out of place since Sunday, is unable to close his mouth, his speech is change as a result. Denies any tongue swelling or difficulty swallowing. He is never had anything like this happen before. He states that he talks all the time but is not aware of any point where he yawned, or ate anything like an apple where he open his mouth very wide. He denies any other injury or trauma. He currently rates his pain as a 2 out of 10 that is worse with talking, describes as an ache on both sides of his jaw. Denies any other complaints at this time. Past Medical History: Schizophrenia and bipolar disorder Past Surgical History: Denies surgical history Social History: Lives at [facility], denies tobacco, alcohol or drug use. Family History: Reviewed and noncontributory for presenting illness Allergies: Reviewed, see documented allergy list. REVIEW OF SYSTEMS: Other than noted above, the 12 point review of systems was reviewed with the patient and were negative, all pertinent findings are included in the HPI. PHYSICAL EXAMINATION: Vital signs reviewed, nursing noted reviewed. GENERAL: Well-appearing, well-nourished and in no acute distress. HEAD: Atraumatic, normocephalic. EYES: Eyes appear normal, extraocular movements intact, sclera anicteric, conjunctiva are normal. ENT: nares patent, oropharynx clear without exudates. Moist mucous membranes. Patient is unable to clench teeth or completely close the jaw, is able to open it to an extent, but has minimal movement of the jaw. I am unable to manually close the patient's jaw on the mandible appears to be projecting anteriorly. There is no signs of dental infection or abscess. There is no significant tenderness over the TMJ. NECK: Normal range of motion, supple without lymphadenopathy LUNGS: Breath sounds clear to auscultation bilaterally and equal. No wheezes rales or rhonchi. HEART: Regular rate and rhythm without murmurs ABDOMEN: Soft, nontender, normoactive bowel sounds. No rebound, guarding, or rigidity. No masses appreciated. EXTREMITIES: Nontender, good range of motion, no pitting or edema. NEUROLOGICAL: No focal neurological deficits. Moves all extremities spontaneously Motor and sensory grossly intact on exam. PSYCH: Normal mood, normal affect. SKIN: Warm, Dry, normal turgor, no rashes or lesions noted on exposed skin TRAVEL OUTSIDE OF THE [place] IN LAST 30 DAYS: No - Related Data Allergies/Adverse Reactions: No Known Allergies Allergy (Verified 02/01/19 21:50) Past Medical History - Social History Smoking Status: Unknown if Ever Smoked Family History: Reviewed & Not Pertinent Patient has suicidal ideation: No Patient has homicidal ideation: No Renal/ Medical History: Denies: Hx Peritoneal Dialysis Psychiatric Medical History: Reports: Hx Bipolar Disorder, Hx Obsessive Compulsive Disorder, Hx Schizophrenia - Immunizations Immunizations up to date: Yes Hx Diphtheria, Pertussis, Tetanus Vaccination: Yes Physical Exam - Vital signs Vitals: Temp Pulse Resp BP Pulse Ox 98.5 F 87 17 148/91 H 94 04/08/19 16:13 04/08/19 16:13 04/08/19 16:13 04/08/19 16:13 04/08/19 16:13 Course - Re-evaluation Re-evalutation: Patient seen and examined vital signs reviewed. Patient was evaluated and treated as appropriate for the patient's presenting symptoms and complaint, with consideration of any critical or life threatening conditions that may be associated with their obtained history and exam as noted above. Patient was treated with procedural sedation, and closed reduction of the mandible, as noted and procedure section, CT imaging was obtained prior to this to confirm the patient's jaw was actually dislocated. The patient was re-evaluated and was stable and tolerated procedure well Evaluation was most consistent with closed mandible dislocation, presumed nontraumatic Plan of care was discussed with the patient at this point, after careful consideration I feel that that patient can be discharged from the emergency department, the patient was educated treatments and reasons to return to the emergency department based on their presumed diagnosis as noted above, they were advised to followup with a primary care physician in 2-3 days. Patient was agreeable to plan of care. *Note is created using voice recognition software and may contain spelling, syntax or grammatical errors. Facial Bones CT 04/08/19 16:40 IMPRESSION: Anteriorly dislocated right and left temporomandibular joints. - Vital Signs Vital signs: Temp Pulse Resp BP Pulse Ox 98.5 F 88 21 H 134/85 H 99 04/08/19 16:13 04/08/19 19:08 04/08/19 19:08 04/08/19 19:01 04/08/19 19:08 Procedures - Conscious Sedation Conscious sedation Time started: 18:45 Consent obtained: Yes Prior complications: Procedural sedation Normal healthy pt.: P1. - ASA Classification Airway Evaluation: Normal anatomy Mallampati Classification: Class 1 Used during procedure: Suction available, IV access obtained, Pulse ox on pt., environmental monitoring technician on pt. Medications administered: Diprivan - 130mg Reversal agents: None I personally performed/intraservice time: Sedation, Procedure, 30 min or less Complications: No - Joint Reduction/Fracture Care Head Consent obtained: Yes Conscious sedation: Yes Reduction attempts: 1 Complications: No Notes: Patient was sedated with a total of 130 mg of IV propofol, this was given in small aliquots until adequate sedation was obtained, the patient was in the supine position, and by inserting thumbs into the back of the jaw, gentle pressure, and inferior and posterior pressure, the patient's mandible was successfully relocated, patient was placed in a dressing to hold his jaw up, with Kerlix and Coban. Patient was monitored post procedure, and did quite well. Discharge - Discharge Clinical Impression: Dislocated mandible Qualifiers: Encounter type: initial encounter Qualified Code(s): S03.00XA - Dislocation of jaw, unspecified side, initial encounter Condition: Stable Disposition: HOME, SELF-CARE Instructions: Jaw Dislocation ([facility]) Additional Instructions: Please keep the Kerlix and Coban dressing on for the next 48 hours, this can then be removed, and afterwards avoid as much as possible wide jaw opening, such as yelling, eating foods such as apples or pears, and avoid widemouth yawning as much as possible. Please follow-up with ear nose and throat physician, that has been listed with your paperwork. Referrals: KAYLENE FOFANA FNP [Primary Care Provider] - Follow up as needed NOLVIA PATRICIA DO [ASSOCIATE] - Follow up in 3-5 days
--- NOTE | 2019-04-08 17:13 | RADIOLOGY REPORT (SQ) ---
EXAM DESCRIPTION: CT FACIAL AREA WITHOUT COMPLETED DATE/TIME: 04/08/2019 4:54 pm REASON FOR STUDY: possible jaw dislocation COMPARISON: None. TECHNIQUE: Noncontrasted images through the facial bones and orbits windowed for bone and soft tissu e. Additional coronal and sagittal reconstructed images reviewed. All images stored on PACS. All CT scanners at this facility use dose modulation, iterative reconstruction, and/or weight based d osing when appropriate to reduce radiation dose to as low as reasonably achievable (ALARA). [facility]: Dose Right [facility]: CareDose [facility]: Dose Right [facility]: Teradose 4D [facility]: [employer] RADIATION DOSE: CT Rad equipment meets quality standard of care and radiation dose reduction techniq ues were employed. CTDIvol: 30.4 mGy. DLP: 686 mGy-cm. mGy. LIMITATIONS: None. FINDINGS: FACIAL BONES: No fracture or bone lesion. ORBITS: Intact. No fracture. Symmetric intact globes and retroorbital soft tissues. PARANASAL SINUSES: Clear. No significant mucosal thickening, mass or fluid. No nasal polyps. Maxill ani sinus outlets are patent. SOFT TISSUES: There is soft tissue calcification in the mass or muscles bilaterally. INFERIOR BRAIN: Limited view. No acute findings. OTHER: There are bilateral TMJ dislocations. Both condyles are situated anterior to the glenoid tracy a. IMPRESSION: Anteriorly dislocated right and left temporomandibular joints. TECHNICAL DOCUMENTATION: JOB ID: [id number] Quality ID # [id number]: Final reports with documentation of one or more dose reduction techniques (e.g., Au tomated exposure control, adjustment of the mA and/or kV according to patient size, use of iterative reconstruction technique) 2010 [employer]- All Rights Reserved Reading location - IP/workstation name: [id number]
[2019-04-08] MEDS ORDERED: PROPOFOL INJ 200 MG/20 ML VIAL IV ONE (18:08)
[2019-04-08 21:21] VITALS: BP 130/88
== END 2019-04-08 21:21 | disposition home or self-care (01) ==
LOC: ER 16:06
DX: S03.00XA Dislocation of jaw, unspecified side, initial encounter (principal); R68.84 Jaw pain; X58.XXXA Exposure to other specified factors, initial encounter
CPT/HCPCS: 99284; 99153; 99152; 70486; 21480; J2704

== ENCOUNTER 2020-07-23 17:38 | Emergency (ER) | payer MEDICARE, MEDICAID ==
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
[2020-07-23 22:03] LABS: ABSOLUTE BASOPHILS # (AUTO) 0.1 10^3/uL (0.0-0.2); ABSOLUTE EOSINOPHILS # (AUTO) 0.2 10^3/uL (0.0-0.6); ABSOLUTE LYMPHOCYTES (AUTO) 1.5 10^3/uL (0.5-4.7); ABSOLUTE MONOCYTES (AUTO) 0.6 10^3/uL (0.1-1.4); ABSOLUTE NEUT (AUTO) 7.8 10^3/uL (1.7-8.2); BASOPHILS % (AUTO) 0.9 % (0-2); EOSINOPHILS % (AUTO) 1.8 % (0-6); HEMATOCRIT 46.7 % (37.9-51.0); HEMOGLOBIN 15.7 g/dL (13.5-17.0); LYMPHOCYTES % (AUTO) 14.7 % (13-45); MEAN CORPUSCULAR HEMOGLOBIN 29.7 pg (27.0-33.4); MEAN CORPUSCULAR HGB CONC 33.6 g/dL (32.0-36.0); MEAN CORPUSCULAR VOLUME 89 fl (80-97); MONOCYTES % (AUTO) 6.3 % (3-13); PLATELET COUNT 243 10^3/uL (150-450); RED BLOOD COUNT 5.28 10^6/uL (4.35-5.55); RED CELL DISTRIBUTION WIDTH 13.7 % (11.5-14.0); SEGMENTED NEUTROPHILS % (AUTO) 76.3 % (42-78); TOTAL CELLS COUNTED % (AUTO) 100 %; WHITE BLOOD COUNT 10.3 10^3/uL (4.0-10.5)
[2020-07-23] MEDS: HALOPERIDOL 5 MG TABLET PO ONE ×2 (22:17→22:36)
[2020-07-23 22:18] LABS: ALBUMIN 4.8 g/dL (3.5-5.0); ALKALINE PHOSPHATASE 61 U/L (38-126); ANION GAP 8 (5-19); ASPARTATE AMINO TRANSFERASE 23 U/L (17-59); BILIRUBIN,DIRECT 0.3 mg/dL (0.0-0.4); BLOOD UREA NITROGEN 17 mg/dL (7-20); CARBON DIOXIDE 32 mmol/L (22-30); CHLORIDE 98 mmol/L (98-107); GLUCOSE 81 mg/dL (75-110); POTASSIUM 4.1 mmol/L (3.6-5.0); TOTAL PROTEIN 7.7 g/dL (6.3-8.2)
[2020-07-23 22:23] LABS: ACETAMINOPHEN < 10 ug/mL (10-30); ALCOHOL < 10 mg/dL (NONE DETECTED); SALICYLATE < 1.0 mg/dL (2.0-20.0)
[2020-07-23] MEDS ORDERED: OLANZAPINE INJ/PF 10 MG SDV IM ONE (22:26)
[2020-07-23 22:39] LABS: APPEARANCE,URINE CLEAR; BILIRUBIN,URINE NEGATIVE (NEGATIVE); COLOR,URINE STRAW; GLUCOSE, URINE NEGATIVE (NEGATIVE); KETONES,URINE NEGATIVE (NEGATIVE); LEUKOCYTE ESTERASE,URINE NEGATIVE (NEGATIVE); NITRITE,URINE NEGATIVE (NEGATIVE); PROTEIN,URINE NEGATIVE (NEGATIVE); URINE SPECIFIC GRAVITY 1.011; UROBILINOGEN,URINE NEGATIVE mg/dL (<2.0)
[2020-07-23 22:57] LABS: URINE AMPHETAMINES SCREEN NEGATIVE; URINE BARBITURATES SCREEN NEGATIVE; URINE BENZODIAZEPINES SCREEN NEGATIVE; URINE COCAINE SCREEN NEGATIVE; URINE MARIJUANA (THC) SCREEN NEGATIVE; URINE METHADONE SCREEN NEGATIVE; URINE PHENCYCLIDINE SCREEN NEGATIVE
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
--- NOTE | 2020-07-24 14:22 | ER Document Report ---
Doctor's Note Notes: 07/24/20 14:21 Patient's vital signs and previous labs, diagnostic images reviewed. Reviewed mental health notes, nurse's notes and previous providers notes. VSS. Pt is in no distress at this time. Denies any SI or HI. General: A&Ox3. Answers questions appropriately. Heart: RRR Lungs: CTAB Psych: Flat affect A/P: Continue monitoring and rec's per MH. Normal diet Consider going back to [facility]
[2020-07-24 14:54] VITALS: BP 120/78
--- NOTE | 2020-07-26 02:32 | EKG REPORT ---
SEVERITY:- ABNORMAL ECG - SINUS TACHYCARDIA LEFT ATRIAL ABNORMALITY : Confirmed by: Rizwan Jean MD 26-Jul-2020 02:31:04
== END 2020-07-24 15:06 | disposition home or self-care (01) ==
LOC: ER 17:38
DX: R45.850 Homicidal ideations (principal); R45.6 Violent behavior; R00.0 Tachycardia, unspecified; F25.9 Schizoaffective disorder, unspecified; F31.9 Bipolar disorder, unspecified; F84.0 Autistic disorder; Z91.14 Patient's other noncompliance with medication regimen
CPT/HCPCS: 93005; 99285; 96372; 36415; 80307 ×4; 85025; 80053; 81001; 80164; 93010; J3490

== ENCOUNTER 2020-08-13 18:31 | Emergency (ER) | payer MEDICARE, MEDICAID ==
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
[2020-08-13 20:28] LABS: ABSOLUTE BASOPHILS # (AUTO) 0.1 10^3/uL (0.0-0.2); ABSOLUTE EOSINOPHILS # (AUTO) 0.3 10^3/uL (0.0-0.6); ABSOLUTE LYMPHOCYTES (AUTO) 2.1 10^3/uL (0.5-4.7); ABSOLUTE MONOCYTES (AUTO) 0.7 10^3/uL (0.1-1.4); ABSOLUTE NEUT (AUTO) 6.5 10^3/uL (1.7-8.2); BASOPHILS % (AUTO) 0.9 % (0-2); HEMATOCRIT 42.4 % (37.9-51.0); HEMOGLOBIN 14.6 g/dL (13.5-17.0); LYMPHOCYTES % (AUTO) 21.3 % (13-45); MEAN CORPUSCULAR HEMOGLOBIN 30.1 pg (27.0-33.4); MEAN CORPUSCULAR HGB CONC 34.3 g/dL (32.0-36.0); MEAN CORPUSCULAR VOLUME 88 fl (80-97); MONOCYTES % (AUTO) 7.4 % (3-13); PLATELET COUNT 215 10^3/uL (150-450); RED BLOOD COUNT 4.85 10^6/uL (4.35-5.55); RED CELL DISTRIBUTION WIDTH 13.5 % (11.5-14.0); SEGMENTED NEUTROPHILS % (AUTO) 67.4 % (42-78); TOTAL CELLS COUNTED % (AUTO) 100 %; WHITE BLOOD COUNT 9.7 10^3/uL (4.0-10.5)
[2020-08-13 20:42] LABS: ALBUMIN 4.6 g/dL (3.5-5.0); ALKALINE PHOSPHATASE 62 U/L (38-126); ANION GAP 9 (5-19); ASPARTATE AMINO TRANSFERASE 25 U/L (17-59); BILIRUBIN,DIRECT 0.2 mg/dL (0.0-0.4); BILIRUBIN,TOTAL 0.6 mg/dL (0.2-1.3); BLOOD UREA NITROGEN 19 mg/dL (7-20); CALCIUM 9.3 mg/dL (8.4-10.2); CARBON DIOXIDE 28 mmol/L (22-30); CHLORIDE 102 mmol/L (98-107); GLUCOSE 98 mg/dL (75-110); NEONATAL BILIRUBIN RESULT 0.4 mg/dL (0.1-1.1); POTASSIUM 4.6 mmol/L (3.6-5.0); TOTAL PROTEIN 7.2 g/dL (6.3-8.2)
[2020-08-13 20:43] LABS: ACETAMINOPHEN < 10 ug/mL (10-30); ALCOHOL < 10 mg/dL (NONE DETECTED); SALICYLATE < 1.0 mg/dL (2.0-20.0)
[2020-08-13 21:14] LABS: APPEARANCE,URINE CLEAR; BILIRUBIN,URINE NEGATIVE (NEGATIVE); COLOR,URINE YELLOW; GLUCOSE, URINE NEGATIVE (NEGATIVE); KETONES,URINE NEGATIVE (NEGATIVE); LEUKOCYTE ESTERASE,URINE NEGATIVE (NEGATIVE); NITRITE,URINE NEGATIVE (NEGATIVE); PROTEIN,URINE NEGATIVE (NEGATIVE); URINE SPECIFIC GRAVITY 1.015; UROBILINOGEN,URINE NEGATIVE mg/dL (<2.0)
[2020-08-13 21:28] LABS: URINE AMPHETAMINES SCREEN NEGATIVE; URINE BARBITURATES SCREEN NEGATIVE; URINE BENZODIAZEPINES SCREEN NEGATIVE; URINE COCAINE SCREEN NEGATIVE; URINE MARIJUANA (THC) SCREEN NEGATIVE; URINE METHADONE SCREEN NEGATIVE; URINE PHENCYCLIDINE SCREEN NEGATIVE
--- NOTE | 2020-08-13 22:48 | EKG REPORT ---
SEVERITY:- BORDERLINE ECG - SINUS RHYTHM PROBABLE LEFT ATRIAL ABNORMALITY : Confirmed by: Faisal Brannon MD 13-Aug-2020 22:47:09
[2020-08-14] MEDS ORDERED: OLANZAPINE INJ/PF 10 MG SDV IM ONE (03:13)
[2020-08-14] MEDS: BENZTROPINE MESYLATE 1 MG TABLET PO SCH (13:34)
[2020-08-14] MEDS: RISPERIDONE 1 MG TABLET PO SCH ×3 (13:34→19:30)
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
[2020-08-14] MEDS ORDERED: RISPERIDONE MICROSPHERES INJ 12.5 MG/2 ML KIT IM ONE (19:23)
--- NOTE | 2020-08-14 19:27 | ER Document Report ---
Doctor's Note Notes: 08/14/20 19:27 Patient's vital signs and previous labs, diagnostic images reviewed. Reviewed mental health notes, nurse's notes and previous providers notes. VSS. Pt is in no distress at this time. Denies any SI or HI. General: A&Ox3. Answers questions appropriately. Heart: RRR Lungs: CTAB Psych: Flat affect A/P: Continue monitoring and rec's per MH. Normal diet will reassess tomorrow
[2020-08-15] MEDS ORDERED: RISPERIDONE MICROSPHERES INJ 12.5 MG/2 ML KIT IM ONE ×2 (10:35→12:00)
[2020-08-15] MEDS: RISPERIDONE 1 MG TABLET PO SCH ×2 (11:09→17:32)
[2020-08-15] MEDS: BENZTROPINE MESYLATE 1 MG TABLET PO SCH (11:55)
--- NOTE | 2020-08-15 15:29 | ER Document Report ---
Doctor's Note Notes: 08/15/20 15:28 PHYSICAL EXAMINATION: GENERAL: Well-appearing and in no acute distress. HEAD: Atraumatic, normocephalic. EYES: sclera anicteric, conjunctiva are normal. ENT: nares patent. Moist mucous membranes. NECK: Normal range of motion, supple without lymphadenopathy LUNGS: CTAB and equal. No wheezes rales or rhonchi. HEART: Regular rate and rhythm without murmurs EXTREMITIES: Normal range of motion, no pitting edema. No cyanosis. NEUROLOGICAL: Cranial nerves grossly intact. Normal speech. Normal gait. PSYCH: Agitated, ambulatory in room, patient fixated on other patients wearing masks SKIN: Warm, Dry, normal turgor, no rashes or lesions noted Patient appears medically clear for transfer at this time, patient is awaiting behavioral health team disposition.
[2020-08-15] MEDS ORDERED: CHLORPROMAZINE HCL INJ 25 MG/1 ML AMPULE IM PRN (15:30)
[2020-08-15] MEDS: BENZTROPINE MESYLATE INJ 2 MG/2 ML AMPULE IM SCH (17:40)
[2020-08-16] MEDS: BENZTROPINE MESYLATE INJ 2 MG/2 ML AMPULE IM SCH (10:32)
[2020-08-16] MEDS: RISPERIDONE 1 MG TABLET PO SCH (10:32)
[2020-08-16 10:35] VITALS: BP 130/78
--- NOTE | 2020-08-16 13:22 | ER Document Report ---
Doctor's Note Notes: 08/16/20 11;45 Constitutional: Nontoxic appearance, no acute distress Eyes: Nonicteric, extraocular movements intact, sclera clear Cardiovascular: Rate and rhythm regular, no JVD Respiratory: Breath sounds clear bilaterally, nonlabored breathing, no use of accessory muscles, no tachypnea Gastrointestinal: Abdomen not distended Muculoskeletal: Moves all extremities well, normal gait Skin: Normal color Neuro: Awake alert oriented, normal speech Psych: Patient with tangential speech, cooperative Patient has been accepted to [place]. Patient is medically clear for transfer at this time. Transport is here, patient stable for transfer.
== END 2020-08-16 12:03 ==
LOC: ER 18:31
DX: F20.9 Schizophrenia, unspecified (principal); F42.9 Obsessive-compulsive disorder, unspecified; F30.9 Manic episode, unspecified; F91.9 Conduct disorder, unspecified
CPT/HCPCS: 93005; 99284; 96372 ×2; 36415; 80307 ×4; 85025; 80053; 81001; 93010; A9270 ×4; J0515 ×2; J3230; J2794

== ENCOUNTER 2020-09-14 20:23 | Emergency (ER) | payer MEDICARE, MEDICAID ==
[2020-09-14 21:14] LABS: ABSOLUTE BASOPHILS # (AUTO) 0.1 10^3/uL (0.0-0.2); ABSOLUTE EOSINOPHILS # (AUTO) 0.5 10^3/uL (0.0-0.6); ABSOLUTE LYMPHOCYTES (AUTO) 2.5 10^3/uL (0.5-4.7); ABSOLUTE MONOCYTES (AUTO) 0.7 10^3/uL (0.1-1.4); ABSOLUTE NEUT (AUTO) 4.1 10^3/uL (1.7-8.2); BASOPHILS % (AUTO) 0.9 % (0-2); EOSINOPHILS % (AUTO) 6.5 % (0-6); HEMATOCRIT 42.3 % (37.9-51.0); HEMOGLOBIN 14.3 g/dL (13.5-17.0); LYMPHOCYTES % (AUTO) 31.8 % (13-45); MEAN CORPUSCULAR HEMOGLOBIN 29.7 pg (27.0-33.4); MEAN CORPUSCULAR HGB CONC 33.7 g/dL (32.0-36.0); MEAN CORPUSCULAR VOLUME 88 fl (80-97); MONOCYTES % (AUTO) 9.2 % (3-13); PLATELET COUNT 202 10^3/uL (150-450); RED CELL DISTRIBUTION WIDTH 13.5 % (11.5-14.0); SEGMENTED NEUTROPHILS % (AUTO) 51.6 % (42-78); TOTAL CELLS COUNTED % (AUTO) 100 %; WHITE BLOOD COUNT 7.9 10^3/uL (4.0-10.5)
[2020-09-14 21:19] LABS: APPEARANCE,URINE CLEAR; BILIRUBIN,URINE NEGATIVE (NEGATIVE); COLOR,URINE YELLOW; GLUCOSE, URINE NEGATIVE (NEGATIVE); KETONES,URINE NEGATIVE (NEGATIVE); LEUKOCYTE ESTERASE,URINE NEGATIVE (NEGATIVE); NITRITE,URINE NEGATIVE (NEGATIVE); PROTEIN,URINE NEGATIVE (NEGATIVE); UROBILINOGEN,URINE NEGATIVE mg/dL (<2.0)
[2020-09-14 21:27] LABS: ALBUMIN 4.5 g/dL (3.5-5.0); ALKALINE PHOSPHATASE 64 U/L (38-126); ANION GAP 8 (5-19); ASPARTATE AMINO TRANSFERASE 25 U/L (17-59); BILIRUBIN,DIRECT 0.1 mg/dL (0.0-0.4); BILIRUBIN,TOTAL 0.5 mg/dL (0.2-1.3); BLOOD UREA NITROGEN 16 mg/dL (7-20); CALCIUM 9.6 mg/dL (8.4-10.2); CARBON DIOXIDE 28 mmol/L (22-30); CHLORIDE 102 mmol/L (98-107); GLUCOSE 106 mg/dL (75-110); TOTAL PROTEIN 7.4 g/dL (6.3-8.2)
[2020-09-14 21:28] LABS: ALCOHOL < 10 mg/dL (NONE DETECTED)
[2020-09-14 21:36] LABS: URINE AMPHETAMINES SCREEN NEGATIVE; URINE BARBITURATES SCREEN NEGATIVE; URINE BENZODIAZEPINES SCREEN NEGATIVE; URINE COCAINE SCREEN NEGATIVE; URINE MARIJUANA (THC) SCREEN NEGATIVE; URINE METHADONE SCREEN NEGATIVE; URINE PHENCYCLIDINE SCREEN NEGATIVE
--- NOTE | 2020-09-14 23:04 | PSYCHOLOGICAL NOTE ---
Psych Note - Psych Note Date seen by psych provider: 09/14/20 Time seen by psych provider: 20:35 - Documentation from father's phone call late afternoon. Observed patient sitting in bed acting appropriately. Psych Note: Note: This information was gathered from [facility] worker Mellisa Saavedra earlier today when father called in to the [facility] office. Call came in at 1320: Eddie Lozano father and legal guardian, Eliezer Anthony, called at 1320 from [phone]. Reported Eddie lives at [facility] (over 10 years) and mobile crisis is currently on the way to facility. Patient was seen at [facility] on 08/13/2020 and under IVC sent to [place]. Patient was dc last from [place] and is refusing to take his Invega Sustenna shot, 234mg. Father wants ED to administer shot and can have it sent over by [facility]. Father was informed [facility] does not carry Invega and I was unsure if this was allowed, but would continue to take his information down. Patient has a history of Schizophrenia, OCD, ASD, and grandiose delusions. [facility]: [phone], Denae Dill, front end mechanic. Note: the following information is from this Clinician MEd. [place], [facility] Patient has had at least 3 visits to the emergency department now for refusing medications or not taking them properly. His last visit as mentioned above he was sent to [place] for Involuntary Commitment Hospitalization. His diagnoses of OCS and ASD make him very inclined to want structure and routine but his way. This is often what seems to be the issue with other residents at [facility]. Father called in a day before prior ED visit and spoke with this clinician regarding his view on wanting to IVC patient to get him to the ED in order to be administered monthly injections. It was explained an IVC could not be obtained just for administering medication and there were specific criteria for IVC. It was also explained sometimes the ED will do the initial monthly injection after already having a patient and knowing there is difficulty with medication compliance, that the ED only has access to certain injections, that is is patient's prescribing physician's responsibility to one prescribe and then administer injections as they see patient in an ongoing fashion, and that given father is legal guardian patient cannot refuse medications. Father at that time noted [facility] reported policy made it a liability issue to administer medications patient was refusing even though patient is not his own guardian. The following day patient arrived to ED and father spoke with the other [facility] Clinician Gonzalez Carrizales who essentially explained the same thing, however patient did have some behaviors and presentation that met IVC criteria so was put on papers and subsequently accepted to [facility]. Observed patient sitting in his bed, being calm and cooperative, without behaviors. Clinical Presentation: Medication noncompliance Likely difficult with those trying to administer medications given his specific diagnoses of OCS, ASD, ad chronic grandiose delusions History of Schizophrenia, OCS. ASD, and grandiose delusions (fixed in nature so meaning will not get rid of may may be able to minimize) Impression/Plan: Patient is cleared from acute psychiatric services. While in the emergency department he has been and typically is calm and cooperative with bizarre ideation/thinking again related to chronic grandiose delusions that are fixed in nature. Father is guardian, patient resides at [facility] and has for at least 1 years, together it is their responsibility to assist and administer the monthly injection. Consulted with Dr. Jackson regarding the management and care of patient. ED Charge Nurse and likely attending ED Physician made aware of recommendations.
--- NOTE | 2020-09-15 10:21 | ER Document Report ---
ED General <GARCIAKEE CASTAÑEDA - Last Filed: 09/15/20 19:25> - General Mode of Arrival: Ambulatory Information source: Law Enforcement TRAVEL OUTSIDE OF THE [place] IN LAST 30 DAYS: No - Related Data Home Medications: ZIPREXA <GUILLERMO YO - Last Filed: 09/15/20 20:18> - General Chief Complaint: Psych Problem Stated Complaint: IVC Time Seen by Provider: 09/15/20 10:20 Primary Care Provider: KAYLENE FOFANA FNP [Primary Care Provider] - Follow up as needed Notes: 45-year-old male patient with history of schizophrenia presenting to the emergency department from [facility] which is a assisted living facility for having violent outburst. Patient apparently noncompliant with medications. Patient arrived on IVC petition. Patient is calm, cooperative, and denies any needs right now. Denies any suicidal or homicidal ideations. Patient is asking when he can go back to his facility. (GUILLERMO YO) - Related Data Allergies/Adverse Reactions: No Known Allergies Allergy (Verified 09/14/20 21:09) Past Medical History - General Information source: [facility] Records - Social History Smoking Status: Former Smoker Frequency of alcohol use: None Drug Abuse: None Family History: Reviewed & Not Pertinent Renal/ Medical History: Denies: Hx Peritoneal Dialysis Psychiatric Medical History: Reports: Hx Bipolar Disorder, Hx Obsessive Compulsive Disorder, Hx Schizophrenia Surgical Hx: Negative - Immunizations Immunizations up to date: Yes Hx Diphtheria, Pertussis, Tetanus Vaccination: Yes <GUILLERMO YO - Last Filed: 09/15/20 20:18> Review of Systems - Review of Systems -: Yes ROS unobtainable due to patient's medical condition <GUILLERMO YO - Last Filed: 09/15/20 20:18> Physical Exam <GUILLERMO YO - Last Filed: 09/15/20 20:18> - Vital signs Vitals: Temp Pulse Resp BP Pulse Ox 97.4 F 76 16 134/83 H 100 09/15/20 00:11 09/15/20 00:11 09/15/20 00:11 09/15/20 00:11 09/15/20 00:11 - Notes Notes: PHYSICAL EXAMINATION: GENERAL: Well-appearing, well-nourished and in no acute distress. HEAD: Atraumatic, normocephalic. EYES: Pupils equal round and reactive to light, extraocular movements intact, sclera anicteric, conjunctiva are normal. ENT: Nares patent, oropharynx clear without exudates. Moist mucous membranes. NECK: Normal range of motion, supple without lymphadenopathy LUNGS: Breath sounds clear to auscultation bilaterally and equal. No wheezes rales or rhonchi. HEART: Regular rate and rhythm without murmurs ABDOMEN: Soft, nontender, nondistended abdomen. No guarding, no rebound. No masses appreciated. Musculoskeletal: Normal range of motion, no pitting or edema. No cyanosis. NEUROLOGICAL: Cranial nerves grossly intact. Normal speech, normal gait. Nor mal sensory, motor exams PSYCH: Normal mood, normal affect. SKIN: Warm, Dry, normal turgor, no rashes or lesions noted. (GUILLERMO YO) Course - Laboratory Result Diagrams: 09/14/20 20:45 09/14/20 20:45 <KEE GARCIA - Last Filed: 09/15/20 19:25> - Laboratory Result Diagrams: 09/14/20 20:45 09/14/20 20:45 - EKG Interpretation by Tx EKG shows normal: Sinus rhythm - rate 73, [place], Intervals, QRS Complexes, ST-T Waves Rate: Normal <GUILLERMO YO - Last Filed: 09/15/20 20:18> - Re-evaluation Re-evalutation: Patient's medical work-up today has been reassuring. Laboratory investigations reveal no acute abnormalities. Patient arrives on IVC petition. He is currently awaiting mental health evaluation here in the emergency department. Patient denies any acute needs at this time. (GUILLERMO YO) - Vital Signs Vital signs: Temp Pulse Resp BP Pulse Ox 97.6 F 72 20 136/66 H 98 09/15/20 17:05 09/15/20 17:05 09/15/20 17:05 09/15/20 17:05 09/15/20 17:05 - Laboratory Laboratory results interpreted by md: 09/14/20 09/15/20 20:45 10:57 Eos % (Auto) 6.5 H Salicylates < 1.0 L Acetaminophen < 10 L Discharge <KEE GARCIA - Last Filed: 09/15/20 19:25> <GUILLERMO YO - Last Filed: 09/15/20 20:18> - Discharge Clinical Impression: Involuntary commitment Condition: Stable Disposition: HOME, SELF-CARE Additional Instructions: You have been evaluated both medical and behavioral health teams have been deemed appropriate for discharge. You have been provided your monthly shot of Invega and you were even needing dose of Zyprexa 10 mg. Please continue following up with your outpatient mental health provider for continued services. AT ANY TIME, IF YOUR SYMPTOMS CHANGE SIGNIFICANTLY OR WORSEN OR YOU DEVELOP NEW SYMPTOMS, RETURN TO THE EMERGENCY DEPARTMENT IMMEDIATELY FOR RE-EVALUATION. Referrals: KAYLENE FOFANA, ASSURANCE ANALYST [Primary Care Provider] - Follow up as needed
[2020-09-15 11:49] LABS: ACETAMINOPHEN < 10 ug/mL (10-30); SALICYLATE < 1.0 mg/dL (2.0-20.0)
--- NOTE | 2020-09-15 18:59 | EKG REPORT ---
SEVERITY:- NORMAL ECG - SINUS RHYTHM : Confirmed by: Rizwan Jean MD 15-Sep-2020 18:58:40
[2020-09-15] MEDS ORDERED: INVEGA SUSTENNA 234 MG/1.5 ML IM ONE (19:00)
[2020-09-15] MEDS ORDERED: OLANZAPINE 5 MG TABLET PO ONE (19:21)
--- NOTE | 2020-09-16 | PSYCHOLOGICAL NOTE ---
Psych Note - Psych Note Date seen by psych provider: 09/15/20 Time seen by psych provider: 13:40 Psych Note: [id number] Reason for Consult: SI, psychosis, behavioral, alcohol abuse Consent Permissions: Eliezer Anthony, father, Patient was re-evaluated in the ED. Patient was confused, stating, he was wrongfully brought here and what the police did was illegal. Patient continues to state his father is a horrible man. Patient later reports he goes by Jose Ramon Melara. Collateral: father, legal guardian, was informed of medication being brought to ED by [facility]. Patient was alert and oriented to self, person, place, and time, but was not oriented to situation. Patient was reporting he was illegally brought here by law enforcement, but was unable to recall why he was admitted. Mood was agitated with congruent affect. He denied current SI/HI. Patient did not appear to be responding to internal stimuli as evidenced by fair eye contact and answering questions appropriately when addressed. Thought processes are not linear or organized. Conversational speech was within normal limits for rate, tone and prosody. Intellectual abilities are estimated to be below average. Insight, judgment, and impulse control were poor as evidenced by aggression towards [facility] staff and not being able to recall events leading to hospitalization. Clinical Presentation: poor impulse control, aggression IVC Criteria per [place] GS 122C Dangerous to others Within the relevant past the individual No has inflicted or attempted to inflict or threatened to inflict serious bodily harm on another AND No that there is a reasonable probability that this conduct will be repeated. OR No has acted in such a way as to create a substantial risk of serious bodily harm to another AND No that there is a reasonable probability that this conduct will be repeated. OR No has engaged in extreme destruction of property AND NO that there is a reasonable probability that this conduct will be repeated. Previous episodes of dangerousness to others, when applicable, may be considered when determining reasonable probability of future dangerous conduct. Clear, cogent, and convincing evidence that an individual has committed a homicide in the relevant past is prima facie evidence of dangerousness to others. Dangerous to self Within the relevant past the individual has done any of the following: acted in such a way as to show ALL of the following: No The individual would be unable without care, supervision, and the continued assistance of others not otherwise available, to exercise self- control, judgment, and discretion in the conduct of the individual's daily responsibilities and social relations or to satisfy the individual's need for nourishment, personal or medical care, residential, or self-protection and safety. AND No There is a reasonable probability of the individual suffering serious physical debilitation within the near future unless adequate treatment is given. A showing of behavior that is grossly irrational, of actions that the individual is unable to control, of behavior that is grossly inappropriate to the situation, or of other evidence of severely impaired insight and judgment shall create a prima facie inference that the individual is unable to care for himself or herself. OR No has attempted suicide or threatened suicide AND No that there is a reasonable probability of suicide unless adequate treatment is given OR No has mutilated himself or herself or attempted to mutilate himself or herself AND No that there is a reasonable probability of serious self-mutilation unless adequate treatment is given. NOTE: Previous episodes of dangerousness to self, when applicable, may be considered when determining reasonable probability of physical debilitation, suicide, or self-mutilation. Medication recommendations per [facility] contracted psychiatrist are as follows: home monthly shot of Invega brought by [facility] Impression\plan: Patient is recommended for rescind of 24 hour petition for evaluation. Patient is well known to this department adn is currently presenting at his baseline. Patient was refusing to take his monthly Invega shot and was demonstrating increased behavioral outbursts both verbal and physical. Medication was administered. Patient is able to return to his [facility] assisted living facility at [facility]. Patient's father/ legal guardian was contacted and is in agreement with plan of care. Dr. Jackson was consulted to care management of this patient; attending physicians in agreement with recommendations and disposition.
[2020-09-16 00:39] VITALS: BP 135/87
== END 2020-09-15 21:30 | disposition home or self-care (01) ==
LOC: ER 20:23
DX: Z04.6 Encounter for general psychiatric examination, requested by authority (principal); F20.9 Schizophrenia, unspecified; Z91.14 Patient's other noncompliance with medication regimen; Z87.891 Personal history of nicotine dependence
CPT/HCPCS: 36415; 80053; 80307; 81001; 85025; 93005; 93010; 96372; 99285